=== PATIENT | male | born 1970 | race Caucasian/White ===

== ENCOUNTER 2019-05-21 17:43 | Inpatient (IN) ==
[2019-05-21 18:21] LABS: Basophils % 0.4 %; Eosinophils # 0.2 K/mcL (0.0-0.6); Eosinophils % 1.4 %; Hematocrit 43.4 % (37.5-50.1); Hemoglobin 15.1 g/dL (12.9-16.9); Immature Granulocytes % 0.3 % (0-4); Lymphocytes # 2.9 K/mcL (0.6-4.6); Lymphocytes % 25.7 %; Mean Corpuscular HGB Conc 34.8 g/dL (31.6-35.5); Mean Corpuscular Volume 86.3 fL (83.0-100.0); Mean Platelet Volume 11.5 fL (9.4-12.4); Monocytes # 0.8 K/mcL (0.0-1.3); Monocytes % 6.9 %; Neutrophils # 7.3 K/mcL (1.6-8.9); Platelet Count 176 K/mcL (140-400); Red Blood Count 5.03 M/mcL (4.19-5.50); Red Cell Distribution Width 15.5 % (11.5-14.5); Segmented Neutrophils % 65.3 %; White Blood Count 11.1 K/mcL (4.3-11.1)
[2019-05-21 18:40] LABS: BUN/Creatinine Ratio 10 (6-26); Blood Urea Nitrogen 11 mg/dL (6-20); Carbon Dioxide 23 mEq/L (23-29); Chloride 103 mEq/L (98-107); Glucose 149 mg/dL (70-105); Osmolality,Calculated 284 (280-300); Potassium 3.9 mEq/L (3.5-5.1); Sodium 136 mEq/L (136-145); eGFR For African Americans > 60 (> 60); eGFR For Non-African Americans > 60 (> 60)
[2019-05-21] MEDS ORDERED: *HR* Heparin 5,000 UNIT/ML VIAL IVP PRN ×4 (18:50→19:03)
[2019-05-21] MEDS ORDERED: *HR* Heparin 5,000 UNIT/ML VIAL IVP ONE ×2 (18:50→19:03)
[2019-05-21] MEDS ORDERED: Nitroglycerin 25 MG/250 ML INFUS..BTL IVC SCH (19:00)
[2019-05-21] MEDS ORDERED: Heparin 25,000 UNIT/250 ML D5W 25,000 UNIT/250 ML IV.SOLN IVC SCH ×2 (19:00→19:15)
[2019-05-21] MEDS ORDERED: *HR* Ticagrelor 90 MG TABLET PO ONE (20:08)
[2019-05-21] MEDS ORDERED: *HR* Ticagrelor 90 MG TABLET ONE (20:10)
[2019-05-21] MEDS ORDERED: *HR* Midazolam HCl 2 MG/2 ML VIAL ONE (20:24)
[2019-05-21] MEDS ORDERED: Isovue-300 150 ML INFUS..BTL ONE (20:25)
[2019-05-21] MEDS ORDERED: Nitroglycerin 1,000 MCG/10 ML VIAL IV ONE (20:25)
[2019-05-21] MEDS ORDERED: *HR* Heparin 10,000 UNIT/10 ML VIAL ONE (20:25)
[2019-05-21] MEDS ORDERED: 0.9 % Sodium Chloride 2,000 ML ONE (20:25)
[2019-05-21] MEDS ORDERED: ISOVUE-370 200 ML INFUS..BTL ONE (20:25)
[2019-05-21] MEDS ORDERED: *HR* FentaNYL (PF) 100 MCG/2 ML VIAL ONE (20:25)
[2019-05-21] MEDS ORDERED: Heparin 1,000 UNITS/500 mL 500 ML ONE (20:25)
[2019-05-21] MEDS ORDERED: Verapamil 5 MG/2 ML VIAL ONE (20:38)
[2019-05-21 20:44] LABS: Hematocrit 38.8 % (37.5-50.1); Mean Corpuscular HGB Conc 34.8 g/dL (31.6-35.5); Mean Corpuscular Hemoglobin 29.9 pg (28.0-33.3); Mean Corpuscular Volume 85.8 fL (83.0-100.0); Mean Platelet Volume 11.2 fL (9.4-12.4); Platelet Count 150 K/mcL (140-400); Red Blood Count 4.52 M/mcL (4.19-5.50); Red Cell Distribution Width 15.3 % (11.5-14.5); White Blood Count 12.9 K/mcL (4.3-11.1)
[2019-05-21 20:45] LABS: Hemoglobin 13.5 g/dL (12.9-16.9)
[2019-05-21 20:56] LABS: Heparin anti-factor XA UFH 0.86 IU/mL (0.30-0.70)
[2019-05-21 20:57] LABS: INR 1.1; Prothrombin Time 12.4 Seconds (9.4-12.1)
[2019-05-21] MEDS ORDERED: Tirofiban 12.5 MG/250ML 12.5 MG/250 ML BAG IVC SCH (21:30)
[2019-05-21] MEDS ORDERED: Ondansetron 4 MG/2 ML VIAL IVP PRN (21:32)
[2019-05-21] MEDS: Morphine Sulfate 2 MG/ML SYRINGE IVP PRN (22:46)
[2019-05-22] MEDS: Morphine Sulfate 2 MG/ML SYRINGE IVP PRN (01:52)
[2019-05-22 05:00] LABS: White Blood Count 8.2 K/mcL (4.3-11.1)
[2019-05-22 05:01] LABS: Basophils % 0.2 %; Eosinophils # 0.1 K/mcL (0.0-0.6); Eosinophils % 1.3 %; Hematocrit 37.3 % (37.5-50.1); Hemoglobin 13.1 g/dL (12.9-16.9); Immature Granulocytes % 0.4 % (0-4); Lymphocytes % 24.1 %; Mean Corpuscular HGB Conc 35.1 g/dL (31.6-35.5); Mean Corpuscular Hemoglobin 30.5 pg (28.0-33.3); Mean Corpuscular Volume 86.9 fL (83.0-100.0); Mean Platelet Volume 11.6 fL (9.4-12.4); Monocytes # 0.7 K/mcL (0.0-1.3); Monocytes % 8.3 %; Neutrophils # 5.4 K/mcL (1.6-8.9); Platelet Count 147 K/mcL (140-400); Red Blood Count 4.29 M/mcL (4.19-5.50); Red Cell Distribution Width 15.4 % (11.5-14.5); Segmented Neutrophils % 65.7 %
[2019-05-22 05:18] LABS: BUN/Creatinine Ratio 10 (6-26); Blood Urea Nitrogen 9 mg/dL (6-20); Calcium 8.9 mg/dL (8.6-10.3); Carbon Dioxide 20 mEq/L (23-29); Chloride 106 mEq/L (98-107); Glucose 116 mg/dL (70-105); Osmolality,Calculated 278 (280-300); Potassium 3.5 mEq/L (3.5-5.1); Sodium 134 mEq/L (136-145); eGFR For African Americans > 60 (> 60); eGFR For Non-African Americans > 60 (> 60)
[2019-05-22] MEDS ORDERED: *HR* Enoxaparin 40 MG/0.4 ML SYRINGE SQ SCH (06:00)
[2019-05-22] MEDS ORDERED: Perflutren Lipid Microsphere 1.3 ML in 0.9 % Sodium Chloride 8.7 ML IVP ONE (08:15)
[2019-05-22] MEDS ORDERED: Metoprolol XL (24 HR) Succ 25 MG TAB.ER.24H PO SCH (09:00)
[2019-05-22] MEDS ORDERED: Lisinopril 20 MG TABLET PO SCH (09:00)
[2019-05-22] MEDS ORDERED: Aspirin 81 MG TAB.CHEW PO SCH (09:00)
[2019-05-22] MEDS ORDERED: *HR* Ticagrelor 90 MG TABLET PO SCH (09:00)
[2019-05-22] MEDS ORDERED: Nicotine 21 MG PATCH.TD24 TD SCH (10:45)
[2019-05-22] MEDS ORDERED: *HR* LORazepam 1 MG TABLET PO ONE (11:55)
[2019-05-22] MEDS ORDERED: Morphine Sulfate 2 MG/ML SYRINGE IVP PRN (14:29)
[2019-05-22] MEDS ORDERED: Ondansetron 4 MG/2 ML VIAL IVP PRN (14:29)
[2019-05-22] MEDS: *HR* Ticagrelor 90 MG TABLET PO SCH (20:13)
[2019-05-22] MEDS ORDERED: rOPINIRole 1 MG TABLET PO SCH ×2 (21:00)
[2019-05-23] MEDS ORDERED: *HR* Enoxaparin 40 MG/0.4 ML SYRINGE SQ SCH (06:00)
[2019-05-23 07:30] VITALS: BP 95/71
[2019-05-23] MEDS: *HR* Ticagrelor 90 MG TABLET PO SCH (08:56)
[2019-05-23] MEDS ORDERED: Metoprolol XL (24 HR) Succ 25 MG TAB.ER.24H PO SCH (09:00)
[2019-05-23] MEDS ORDERED: Nicotine 21 MG PATCH.TD24 TD SCH (09:00)
[2019-05-23] MEDS ORDERED: Aspirin 81 MG TAB.CHEW PO SCH (09:00)
[2019-05-23] MEDS ORDERED: Lisinopril 20 MG TABLET PO SCH (09:00)
== END 2019-05-23 11:30 | disposition home or self-care (01) | DRG 247 ==
LOC: EMEROOARM 17:43 → ICNU 17:43 → 2NENU 05-22 18:02
PROVIDERS: ADMIT Emergency Medicine; ATTEND Emergency Medicine

== ENCOUNTER 2019-09-28 15:57 | Inpatient (IN) ==
[2019-09-28] MEDS ORDERED: *HR* FentaNYL (PF) 100 MCG/2 ML VIAL IVP ONE (16:53)
[2019-09-28 17:00] LABS: Basophils # 0.1 K/mcL (0.0-0.2); Basophils % 0.4 %; Eosinophils # 0.5 K/mcL (0.0-0.6); Eosinophils % 3.7 %; Hematocrit 30.7 % (37.5-50.1); Hemoglobin 10.2 g/dL (12.9-16.9); Immature Granulocytes % 0.4 % (0-4); Lymphocytes # 1.9 K/mcL (0.6-4.6); Lymphocytes % 13.8 %; Mean Corpuscular HGB Conc 33.2 g/dL (31.6-35.5); Mean Corpuscular Hemoglobin 28.5 pg (28.0-33.3); Mean Corpuscular Volume 85.8 fL (83.0-100.0); Mean Platelet Volume 11.2 fL (9.4-12.4); Monocytes # 0.5 K/mcL (0.0-1.3); Monocytes % 3.9 %; Neutrophils # 10.6 K/mcL (1.6-8.9); Platelet Count 416 K/mcL (140-400); Red Blood Count 3.58 M/mcL (4.19-5.50); Red Cell Distribution Width 15.1 % (11.5-14.5); Segmented Neutrophils % 77.8 %; White Blood Count 13.6 K/mcL (4.3-11.1)
[2019-09-28 17:27] LABS: Platelet Estimate Normal (Normal)
[2019-09-28 17:32] LABS: BUN/Creatinine Ratio 13 (6-26); Blood Urea Nitrogen 16 mg/dL (6-20); Calcium 9.5 mg/dL (8.6-10.3); Carbon Dioxide 20 mEq/L (23-29); Chloride 100 mEq/L (98-107); Glucose 138 mg/dL (70-105); Osmolality,Calculated 277 (280-300); Potassium 3.9 mEq/L (3.5-5.1); Sodium 132 mEq/L (136-145); eGFR For African Americans > 60 (> 60); eGFR For Non-African Americans > 60 (> 60)
[2019-09-28 17:35] LABS: Troponin I 0.06 ng/mL (< 0.04)
[2019-09-28] MEDS ORDERED: *HR* OxyCODONE Immed Rel 5 MG TABLET PO STA (18:12)
[2019-09-28] MEDS ORDERED: Nicotine 2 MG GUM BC PRN (19:13)
[2019-09-28] MEDS ORDERED: Naloxone 0.4 MG/ML INJ IVP PRN ×2 (19:13→20:57)
[2019-09-28] MEDS ORDERED: Ondansetron ODT 4 MG TAB.RAPDIS SL PRN (19:13)
[2019-09-28] MEDS ORDERED: 0.9 % Sodium Chloride 1,000 ML IVC SCH (19:15)
[2019-09-28] MEDS: Gabapentin 300 MG CAPSULE PO SCH (20:20)
[2019-09-28] MEDS: rOPINIRole 1 MG TABLET PO SCH (20:20)
[2019-09-28] MEDS: Metoprolol XL (24 HR) Succ 25 MG TAB.ER.24H PO SCH (20:20)
[2019-09-28] MEDS: Nicotine 14 MG PATCH.TD24 TD SCH (20:21)
[2019-09-29 02:21] LABS: Basophils % 0.4 %; Eosinophils # 1.3 K/mcL (0.0-0.6); Eosinophils % 13.6 %; Hematocrit 27.5 % (37.5-50.1); Hemoglobin 8.9 g/dL (12.9-16.9); Immature Granulocytes % 0.2 % (0-4); Immature Reticulocyte % 23.1 % (11.0-38.0); Lymphocytes # 2.2 K/mcL (0.6-4.6); Lymphocytes % 23.1 %; Mean Corpuscular HGB Conc 32.4 g/dL (31.6-35.5); Mean Corpuscular Hemoglobin 27.8 pg (28.0-33.3); Mean Corpuscular Volume 85.9 fL (83.0-100.0); Mean Platelet Volume 10.5 fL (9.4-12.4); Monocytes # 0.5 K/mcL (0.0-1.3); Monocytes % 5.5 %; Neutrophils # 5.5 K/mcL (1.6-8.9); Platelet Count 361 K/mcL (140-400); Red Cell Distribution Width 15.1 % (11.5-14.5); Retculocyte # 0.07 M/mcL (0.05-0.10); Reticulocyte % 2.1 % (1.6-2.8); Segmented Neutrophils % 57.2 %; White Blood Count 9.5 K/mcL (4.3-11.1)
[2019-09-29 02:23] LABS: INR 1.4; Prothrombin Time 15.6 Seconds (9.4-12.1)
[2019-09-29 03:04] LABS: Alanine Aminotransferase 18 Units/L (7-52); Albumin 3.2 g/dL (3.5-5.7); Alkaline Phosphatase 94 Units/L (34-104); Aspartate Amino Transferase 26 Units/L (13-39); BUN/Creatinine Ratio 16 (6-26); Bilirubin,Total 0.4 mg/dL (0.3-1.0); Blood Urea Nitrogen 16 mg/dL (6-20); Calcium 8.8 mg/dL (8.6-10.3); Carbon Dioxide 22 mEq/L (23-29); Chloride 102 mEq/L (98-107); Ferritin 96 ng/mL (20-250); Folate 3.7 ng/mL (3.0-16.0); Globulin 3.2 g/dL (2.4-3.5); Glucose 124 mg/dL (70-105); Iron < 10 mcg/dL (65-175); Magnesium 1.8 mg/dL (1.6-2.6); Osmolality,Calculated 279 (280-300); Phosphorous 4.1 mg/dL (2.7-4.5); Potassium 3.4 mEq/L (3.5-5.1); Sodium 133 mEq/L (136-145); Total Protein 6.4 g/dL (6.4-8.9); Transferrin 200 mg/dL (203-362); eGFR For African Americans > 60 (> 60); eGFR For Non-African Americans > 60 (> 60)
[2019-09-29 03:05] LABS: Vitamin B12 > 1500 pg/mL (250-1100)
[2019-09-29 08:12] LABS: Estimated Average Glucose 128 mg/dl
[2019-09-29 09:14] LABS: Bilirubin,Urine Negative (Negative); Blood,Urine Negative (Negative); Color,Urine Yellow (Yellow); Glucose,Urine (UA) Normal (Normal); Ketones,Urine Negative (Negative); Leukocyte Esterase,Urine Small (Negative); Nitrite,Urine Negative (Negative); PH,Urine 6.5 pH Units (5.0-8.0); Protein,Urine Negative (Neg-Trace); Specific Gravity,Urine 1.021 (1.010-1.025)
[2019-09-29] MEDS: Gabapentin 300 MG CAPSULE PO SCH ×3 (09:15→20:25)
[2019-09-29] MEDS: Aspirin Enteric Coated 81 MG Tablet PO SCH (09:15)
[2019-09-29] MEDS: Nicotine 14 MG PATCH.TD24 TD SCH (09:16)
[2019-09-29] MEDS: Metoprolol XL (24 HR) Succ 25 MG TAB.ER.24H PO SCH ×2 (09:17→20:24)
[2019-09-29 09:18] LABS: Bacteria,Urine None Seen per hpf (None-Few); Hyaline Casts,Urine None Seen per lpf (None-Few); RBC,Urine 0-3 per hpf (0-3); Squamous Epithelial Cell,Urine Few per lpf (None-Few); WBC,Urine 0-3 per hpf (0-3)
[2019-09-29 09:19] LABS: Clarity,Urine Hazy (Clear)
[2019-09-29 09:24] LABS: Sodium, Urine 49.8 mEq/L
[2019-09-29] MEDS ORDERED: Mag Hydrox/Al Hydrox/Simeth 30 ML UDC PO PRN (18:17)
[2019-09-29] MEDS: Doxycycline 100 MG in 0.9 % Sodium Chloride Mini Bag 100 ML IVPB SCH (20:22)
[2019-09-29] MEDS: Furosemide 40 MG TABLET PO SCH (20:22)
[2019-09-29] MEDS: rOPINIRole 1 MG TABLET PO SCH (20:26)
[2019-09-29] MEDS: *HR* OxyCODONE Immed Rel 5 MG TABLET PO PRN (20:26)
[2019-09-30] MEDS: *HR* OxyCODONE Immed Rel 5 MG TABLET PO PRN ×3 (03:02→11:22)
[2019-09-30 04:13] LABS: Hematocrit 28.4 % (37.5-50.1); Hemoglobin 9.3 g/dL (12.9-16.9); Mean Corpuscular HGB Conc 32.7 g/dL (31.6-35.5); Mean Corpuscular Hemoglobin 27.8 pg (28.0-33.3); Mean Platelet Volume 10.7 fL (9.4-12.4); Platelet Count 368 K/mcL (140-400); Red Blood Count 3.34 M/mcL (4.19-5.50); White Blood Count 10.4 K/mcL (4.3-11.1)
[2019-09-30 04:31] LABS: BUN/Creatinine Ratio 15 (6-26); Blood Urea Nitrogen 13 mg/dL (6-20); Calcium 8.8 mg/dL (8.6-10.3); Carbon Dioxide 22 mEq/L (23-29); Chloride 101 mEq/L (98-107); Glucose 111 mg/dL (70-105); Osmolality,Calculated 277 (280-300); Potassium 3.7 mEq/L (3.5-5.1); Sodium 133 mEq/L (136-145); eGFR For African Americans > 60 (> 60); eGFR For Non-African Americans > 60 (> 60)
[2019-09-30] MEDS: Doxycycline 100 MG in 0.9 % Sodium Chloride Mini Bag 100 ML IVPB SCH (06:23)
[2019-09-30] MEDS: Nicotine 14 MG PATCH.TD24 TD SCH (08:42)
[2019-09-30] MEDS: Metoprolol XL (24 HR) Succ 25 MG TAB.ER.24H PO SCH (08:43)
[2019-09-30] MEDS: Furosemide 40 MG TABLET PO SCH (08:44)
[2019-09-30] MEDS: Aspirin Enteric Coated 81 MG Tablet PO SCH (08:44)
[2019-09-30] MEDS: Gabapentin 300 MG CAPSULE PO SCH (08:44)
[2019-09-30 11:31] VITALS: BP 118/85
== END 2019-09-30 13:47 | disposition home or self-care (01) | DRG 143 ==
LOC: 2NENU 15:57 → EMEROOARM 15:57 → 2NENU 20:00
PROVIDERS: ADMIT Internal Medicine; ATTEND Internal Medicine

== ENCOUNTER 2019-11-04 09:55 | Inpatient (IN) ==
[2019-11-04] MEDS ORDERED: Famotidine 20 MG/2 ML VIAL IVP ONE (10:25)
[2019-11-04] MEDS ORDERED: Gabapentin 300 MG CAPSULE PO ONE (10:26)
[2019-11-04] MEDS ORDERED: Acetaminophen IV 1,000 MG/100 ML INFUS..BTL IVPB ONE (10:26)
[2019-11-04] MEDS ORDERED: Ringers Solution, Lactated 1,000 ML IVC SCH (10:30)
[2019-11-04] MEDS ORDERED: Ondansetron 4 MG/2 ML VIAL IVP ONE (10:45)
[2019-11-04] MEDS ORDERED: *HR* OxyCODONE Immed Rel 5 MG TABLET PO PRN (10:45)
[2019-11-04] MEDS ORDERED: *HR* Promethazine 25 MG/ML VIAL IVP PRN (10:45)
[2019-11-04] MEDS ORDERED: *HR* Metoprolol 5 MG/5 ML VIAL IVP PRN (10:45)
[2019-11-04] MEDS ORDERED: Albuterol 2.5 MG/3 ML NEBULIZER IH PRN (10:45)
[2019-11-04] MEDS ORDERED: *HR* Propofol 200 MG/20 ML VIAL IVP ONE (10:53)
[2019-11-04] MEDS ORDERED: *HR* FentaNYL (PF) 250 MCG/5 ML VIAL ONE (10:53)
[2019-11-04] MEDS ORDERED: *HR* Midazolam HCl 5 MG/5 ML VIAL IVP ONE (10:53)
[2019-11-04] MEDS ORDERED: *HR* Rocuronium Bromide 50 MG/5 ML VIAL ONE (10:53)
[2019-11-04] MEDS ORDERED: Ondansetron 4 MG/2 ML VIAL ONE (10:54)
[2019-11-04] MEDS ORDERED: *HR* Magnesium Sulfate 1 GM/2 ML VIAL ONE (10:54)
[2019-11-04] MEDS ORDERED: Dexamethasone 4 MG/ML VIAL ONE (10:54)
[2019-11-04] MEDS ORDERED: *HR* PHENYLEPHRINE 1,000 MCG/10 ML SYRINGE IVP ONE (10:54)
[2019-11-04] MEDS ORDERED: Lidocaine 2% Syringe 100 MG/5 ML ONE (11:15)
[2019-11-04 11:52] LABS: ABG Base Excess -4 mEq/L (-2 to 3); ABG Chloride 102 mEq/L (98-107); ABG Glucose 82 mg/dL (60-95); ABG HCO3 23 mEq/L (21-27); ABG Oxygen Saturation 100 % (95-98); ABG PCO2 46 mmHg (35-45); ABG PO2 358 mmHg (85-104); ABG TCO2 24 mEq/L (20-26)
[2019-11-04] MEDS ORDERED: *HR* HYDROMORPHONE 2 MG/ML VIAL ONE (12:08)
[2019-11-04] MEDS: *HR* HYDROmorphone (PF) 1 MG/ML SYRINGE IVP PRN ×2 (13:48→13:55)
[2019-11-04] MEDS: *HR* FentaNYL (PF) 100 MCG/2 ML VIAL IVP PRN ×2 (14:07→14:20)
[2019-11-04] MEDS ORDERED: *HR* HYDROmorphone PF 0.5 MG/0.5 ML SYRINGE IVP PRN (14:08)
[2019-11-04] MEDS ORDERED: Naloxone 0.4 MG/ML INJ IVP PRN (15:28)
[2019-11-04] MEDS ORDERED: Ondansetron 4 MG/2 ML VIAL IVP PRN (15:28)
[2019-11-04] MEDS: Ipratropium/Albuterol Neb 3 ML IH SCH ×3 (15:53→23:50)
[2019-11-04] MEDS: *HR* OxyCODONE/APAP 7.5/325 TABLET PO PRN ×2 (15:58→20:37)
[2019-11-04] MEDS: *HR* Heparin 5,000 UNIT/ML VIAL SQ SCH ×2 (16:01→20:39)
[2019-11-04] MEDS: 0.9 % Sodium Chloride 1,000 ML IVC SCH (16:01)
[2019-11-04] MEDS: Gabapentin 300 MG CAPSULE PO SCH ×2 (16:02→20:38)
[2019-11-04] MEDS: Ketorolac 15 MG/ML VIAL IVP SCH ×2 (17:56→23:37)
[2019-11-04] MEDS: Metoprolol XL (24 HR) Succ 25 MG TAB.ER.24H PO SCH (20:38)
[2019-11-04] MEDS: rOPINIRole 1 MG TABLET PO SCH (20:38)
[2019-11-04] MEDS: Famotidine 20 MG TABLET PO SCH (20:39)
[2019-11-04] MEDS: Sennosides/Docusate Sodium TABLET PO SCH (20:39)
[2019-11-05] MEDS: *HR* OxyCODONE/APAP 7.5/325 TABLET PO PRN ×2 (00:41→05:17)
[2019-11-05] MEDS: Ipratropium/Albuterol Neb 3 ML IH SCH ×3 (03:45→11:23)
[2019-11-05] MEDS: 0.9 % Sodium Chloride 1,000 ML IVC SCH (04:30)
[2019-11-05 04:55] LABS: Hematocrit 24.2 % (37.5-50.1); Hemoglobin 7.7 g/dL (12.9-16.9); Mean Corpuscular HGB Conc 31.8 g/dL (31.6-35.5); Mean Corpuscular Hemoglobin 28.1 pg (28.0-33.3); Mean Corpuscular Volume 88.3 fL (83.0-100.0); Mean Platelet Volume 11.3 fL (9.4-12.4); Platelet Count 148 K/mcL (140-400); Red Blood Count 2.74 M/mcL (4.19-5.50); Red Cell Distribution Width 18.6 % (11.5-14.5); White Blood Count 9.8 K/mcL (4.3-11.1)
[2019-11-05 05:08] LABS: % Iron Saturation 3 % (20-55); BUN/Creatinine Ratio 21 (6-26); Blood Urea Nitrogen 19 mg/dL (6-20); Calcium 8.8 mg/dL (8.6-10.3); Carbon Dioxide 19 mEq/L (23-29); Chloride 108 mEq/L (98-107); Glucose 166 mg/dL (70-105); Iron 10 mcg/dL (65-175); Magnesium 1.7 mg/dL (1.6-2.6); Osmolality,Calculated 284 (280-300); Potassium 4.3 mEq/L (3.5-5.1); Sodium 134 mEq/L (136-145); Transferrin 205 mg/dL (203-362); eGFR For African Americans > 60 (> 60); eGFR For Non-African Americans > 60 (> 60)
[2019-11-05] MEDS: *HR* Heparin 5,000 UNIT/ML VIAL SQ SCH ×3 (05:52→20:28)
[2019-11-05] MEDS: Ketorolac 15 MG/ML VIAL IVP SCH ×3 (05:53→18:20)
[2019-11-05] MEDS: Metoprolol XL (24 HR) Succ 25 MG TAB.ER.24H PO SCH ×2 (08:37→20:29)
[2019-11-05] MEDS: Aspirin Enteric Coated 81 MG Tablet PO SCH (08:37)
[2019-11-05] MEDS: Sennosides/Docusate Sodium TABLET PO SCH ×2 (08:37→20:29)
[2019-11-05] MEDS: Gabapentin 300 MG CAPSULE PO SCH ×3 (08:37→20:28)
[2019-11-05] MEDS: Famotidine 20 MG TABLET PO SCH ×2 (08:38→20:29)
[2019-11-05] MEDS ORDERED: Iron Sucrose Complex 400 MG in 0.9 % Sodium Chloride 250 ML IVPB ONE (08:57)
[2019-11-05] MEDS: *HR* OxyCODONE/APAP 10/325 TABLET PO PRN ×3 (10:16→22:28)
[2019-11-05] MEDS: Cefepime HCl 2,000 MG in 0.9 % Sodium Chloride Mini Bag 100 ML IVPB SCH (12:17)
[2019-11-05] MEDS: rOPINIRole 1 MG TABLET PO SCH (20:29)
[2019-11-06] MEDS: Cefepime HCl 2,000 MG in 0.9 % Sodium Chloride Mini Bag 100 ML IVPB SCH ×2 (00:05→12:49)
[2019-11-06] MEDS: Ketorolac 15 MG/ML VIAL IVP SCH ×4 (00:06→18:23)
[2019-11-06] MEDS: *HR* OxyCODONE/APAP 10/325 TABLET PO PRN ×4 (04:25→20:50)
[2019-11-06] MEDS: *HR* Heparin 5,000 UNIT/ML VIAL SQ SCH ×3 (05:28→20:47)
[2019-11-06] MEDS: Gabapentin 300 MG CAPSULE PO SCH ×3 (07:51→20:48)
[2019-11-06] MEDS: Metoprolol XL (24 HR) Succ 25 MG TAB.ER.24H PO SCH ×2 (07:52→20:47)
[2019-11-06] MEDS: Aspirin Enteric Coated 81 MG Tablet PO SCH (07:53)
[2019-11-06] MEDS: Sennosides/Docusate Sodium TABLET PO SCH ×2 (07:53→20:50)
[2019-11-06] MEDS: Famotidine 20 MG TABLET PO SCH ×2 (07:55→20:49)
[2019-11-06] MEDS ORDERED: Iron Sucrose Complex 400 MG in 0.9 % Sodium Chloride 250 ML IVPB ONE (09:00)
[2019-11-06] MEDS ORDERED: Naloxone 0.4 MG/ML INJ IVP PRN (10:50)
[2019-11-06] MEDS ORDERED: Ondansetron 4 MG/2 ML VIAL IVP PRN (10:50)
[2019-11-06] MEDS: Temazepam 15 MG CAPSULE PO PRN (20:48)
[2019-11-06] MEDS: rOPINIRole 1 MG TABLET PO SCH (20:49)
[2019-11-07] MEDS: Ketorolac 15 MG/ML VIAL IVP SCH ×5 (00:53→23:48)
[2019-11-07] MEDS: *HR* OxyCODONE/APAP 10/325 TABLET PO PRN ×6 (00:53→23:47)
[2019-11-07] MEDS: Cefepime HCl 2,000 MG in 0.9 % Sodium Chloride Mini Bag 100 ML IVPB SCH (00:54)
[2019-11-07] MEDS: *HR* Heparin 5,000 UNIT/ML VIAL SQ SCH ×3 (05:16→21:14)
[2019-11-07] MEDS: Aspirin Enteric Coated 81 MG Tablet PO SCH (07:55)
[2019-11-07] MEDS: Metoprolol XL (24 HR) Succ 25 MG TAB.ER.24H PO SCH ×2 (07:55→21:15)
[2019-11-07] MEDS: Gabapentin 300 MG CAPSULE PO SCH ×3 (07:56→21:14)
[2019-11-07] MEDS: Sennosides/Docusate Sodium TABLET PO SCH ×2 (07:57→21:15)
[2019-11-07] MEDS: Famotidine 20 MG TABLET PO SCH ×2 (07:57→21:15)
[2019-11-07] MEDS: levoFLOXacin 500 MG/100 ML 500 MG/100 ML BAG IVPB SCH (10:05)
[2019-11-07] MEDS: rOPINIRole 1 MG TABLET PO SCH (21:15)
[2019-11-07] MEDS: Temazepam 15 MG CAPSULE PO PRN (21:23)
[2019-11-08] MEDS: *HR* OxyCODONE/APAP 10/325 TABLET PO PRN ×3 (03:58→13:33)
[2019-11-08 04:38] LABS: Hematocrit 20.6 % (37.5-50.1); Hemoglobin 6.5 g/dL (12.9-16.9); Mean Corpuscular HGB Conc 31.6 g/dL (31.6-35.5); Mean Corpuscular Hemoglobin 28.5 pg (28.0-33.3); Mean Corpuscular Volume 90.4 fL (83.0-100.0); Platelet Count 136 K/mcL (140-400); Red Blood Count 2.28 M/mcL (4.19-5.50); Red Cell Distribution Width 19.5 % (11.5-14.5); White Blood Count 6.3 K/mcL (4.3-11.1)
[2019-11-08 04:57] LABS: % Iron Saturation 17 % (20-55); BUN/Creatinine Ratio 19 (6-26); Blood Urea Nitrogen 14 mg/dL (6-20); Calcium 8.4 mg/dL (8.6-10.3); Carbon Dioxide 20 mEq/L (23-29); Chloride 110 mEq/L (98-107); Glucose 95 mg/dL (70-105); Iron 38 mcg/dL (65-175); Osmolality,Calculated 282 (280-300); Potassium 4.1 mEq/L (3.5-5.1); Sodium 136 mEq/L (136-145); Transferrin 159 mg/dL (203-362); eGFR For African Americans > 60 (> 60); eGFR For Non-African Americans > 60 (> 60)
[2019-11-08] MEDS: Ketorolac 15 MG/ML VIAL IVP SCH ×2 (05:07→13:11)
[2019-11-08] MEDS: *HR* Heparin 5,000 UNIT/ML VIAL SQ SCH (05:07)
[2019-11-08] MEDS: Sennosides/Docusate Sodium TABLET PO SCH (09:23)
[2019-11-08] MEDS: Aspirin Enteric Coated 81 MG Tablet PO SCH (09:23)
[2019-11-08] MEDS: Gabapentin 300 MG CAPSULE PO SCH ×2 (09:25→16:37)
[2019-11-08] MEDS: Metoprolol XL (24 HR) Succ 25 MG TAB.ER.24H PO SCH (09:26)
[2019-11-08] MEDS: Famotidine 20 MG TABLET PO SCH (09:28)
[2019-11-08] MEDS: levoFLOXacin 500 MG/100 ML 500 MG/100 ML BAG IVPB SCH (09:50)
[2019-11-08 15:14] VITALS: BP 109/66
[2019-11-08] MEDS ORDERED: Aminoglycoside Consult 1 EACH MC ONE (16:42)
== END 2019-11-08 16:43 | disposition home or self-care (01) | DRG 317 ==
LOC: SAMDAY 09:55 → ICNU 12:05 → 3NENU 11-06 10:39
PROVIDERS: ADMIT Thoracic Surgery (Cardiothoracic Vascular Surgery); ATTEND Thoracic Surgery (Cardiothoracic Vascular Surgery)